=== PATIENT | female | born 1980 | race Caucasian/White ===

== ENCOUNTER → 2020-09-18 | Outpatient (CLI) | payer OTHER ==
--- NOTE | 2020-09-18 16:09 | RAD ---
EXAM: Pelvis and right hip, 3 views. HISTORY: Pain. Fall. COMPARISON: None. FINDINGS: Frontal views of the pelvis and frontal and frog-leg views the right hip are obtained. Ther e is no fracture, dislocation or subluxation. There are incidental bilateral fallopian tube closure d evices overlying the pelvis. IMPRESSION: No acute osseous finding. Electronically signed by: Hattie Cooney MD (09/18/2020 4:06 PM) [id number]
== END ==
LOC: RAD 15:53
PROVIDERS: ATTEND Nurse Practitioner Family
DX: M25.551 Pain in right hip (principal)
CPT/HCPCS: 73502

== ENCOUNTER 2021-07-08 05:19 | Inpatient (IN) | payer OTHER ==
[~2021-07-08] VITALS: Ht 165.1 cm; Wt 84.6 kg
[2021-07-08] MEDS ORDERED: methylPREDNISolone SOD SUCC PF 125 MG/2 ML VIAL. ONE (05:24)
[2021-07-08] MEDS ORDERED: IPRATRPIUM/ALBUTEROL 0.5/2.5MG 3 ML NEBU. ONE (05:24)
--- NOTE | 2021-07-08 05:24 | PHYS DOC ---
Past History Past Medical History: Asthma (KENDELL COHEN MD) General Adult EDM: Chief Complaint: ASTHMA HPI: HPI: "... I .. woke ... up.... this ... .way... I .... could .... nt ... breath......" Patient is a 41 year old female who presents with acute respiratory failure. Pt has history of longstanding asthma. Currently not on any steroids. No recent travel. No specific ill contacts. Paramedics advised that patient is found sats in the 80s and was started on a DuoNeb. Initially patient refused BiPAP. On arrival patient in tripod position sats in the 80s. Patient continued on duo nebs and started on BiPAP. Currently oxygenation has increased to 95% on BiPAP 12/11. Pt. has wheezes throughout pulmonary zulu[place]. Patient denies any recent travel. Patient did not get flu vaccination this season or Covid vaccinations.. (KENDELL COHEN MD) Review of Systems: Review of Systems: Constitutional: Denies fever or chills Eyes: Denies change in visual acuity HENT: History of nasal congestion Respiratory: Complains of cough and shortness of breath Cardiovascular: Denies chest pain or edema GI: Denies abdominal pain, nausea, vomiting, bloody stools or diarrhea : Denies dysuria Musculoskeletal: Denies back pain or joint pain Integument: Denies rash Neurologic: Denies headache, focal weakness or sensory changes Endocrine: Denies polyuria or polydipsia Lymphatic: Denies swollen glands Psychiatric: Denies depression or anxiety (KENDELL COHEN MD) Family History: Family History: Noncontributory to presentation (KENDELL COHEN MD) Current Medications: Current Meds: See nursing for home meds (KENDELL COHEN MD) Allergies: Allergies: No known drug allergies (KENDELL COHEN MD) Physical Exam: PE: Constitutional: In acute distress, non-toxic appearance. [] HENT: Normocephalic, atraumatic, bilateral external ears normal, oropharynx moist, no oral exudates, nose swollen turbinates clear rhinorrhea Eyes: PERRLA, EOMI, conjunctiva normal, no discharge. [] Neck: Normal range of motion, no tenderness, supple, no stridor. [] Cardiovascular: Tachycardia heart rate regular rhythm, no murmur [] Lungs & Thorax: Bilateral breath sounds diffuse wheezing in all lung zulu[place] on auscultation [] Abdomen: Bowel sounds decreased, soft, no tenderness, no masses, no pulsatile masses. [] Skin: Warm, diaphoretic, no erythema, no rash. [] Back: No tenderness, no CVA tenderness. [] Extremities: No tenderness, no cyanosis, no clubbing, ROM intact, no edema. No cording appreciated Neurologic: Alert and oriented X 3, normal motor function, normal sensory function, no focal deficits noted. [] Psychologic: Affect anxious, mood depressed. (KENDELL COHEN MD) Current Patient Data: Labs: Laboratory Tests Test 07/08/21 05:25 07/08/21 05:48 07/08/21 05:52 07/08/21 07:10 White Blood Count 6.7 x10^3/uL Red Blood Count 4.63 x10^6/uL Hemoglobin 14.3 g/dL Hematocrit 41.2 % Mean Corpuscular Volume 89 fL Mean Corpuscular Hemoglobin 31 pg Mean Corpuscular Hemoglobin Concent 35 g/dL Red Cell Distribution Width 13.2 % Platelet Count 291 x10^3/uL Neutrophils (%) (Auto) 56 % Lymphocytes (%) (Auto) 27 % Monocytes (%) (Auto) 12 % Eosinophils (%) (Auto) 3 % Basophils (%) (Auto) 1 % Neutrophils # (Auto) 3.8 x10^3uL Lymphocytes # (Auto) 1.8 x10^3/uL Monocytes # (Auto) 0.8 x10^3/uL Eosinophils # (Auto) 0.2 x10^3/uL Basophils # (Auto) 0.1 x10^3/uL Prothrombin Time 9.5 SEC Prothromb Time International Ratio 0.9 Activated Partial Thromboplast Time 26 SEC D-Dimer (Radha) 0.55 mg/L Maternal Serum HCG Beta Subunit < 1 mIU/mL Sodium Level 139 mmol/L Potassium Level 3.9 mmol/L Chloride Level 104 mmol/L Carbon Dioxide Level 22 mmol/L Anion Gap 13 Blood Urea Nitrogen 20 mg/dL Creatinine 0.7 mg/dL Estimated GFR (Cockcroft-Gault) 91.8 Glucose Level 162 mg/dL Calcium Level 9.1 mg/dL Magnesium Level 2.2 mg/dL Total Bilirubin 0.3 mg/dL Direct Bilirubin 0.1 mg/dL Aspartate Amino Transf (AST/SGOT) 17 U/L Alanine Aminotransferase (ALT/SGPT) 23 U/L Alkaline Phosphatase 54 U/L Creatine Kinase 78 U/L Troponin I High Sensitivity 7 ng/L AA-Rnw-M-Type Natriuretic Peptide 62 pg/mL Total Protein 7.4 g/dL Albumin 3.7 g/dL Lipase 71 U/L Lactic Acid Level 1.3 mmol/L Influenza Type A (Rapid) Negative Influenza Type B (Rapid) Negative SARS-CoV-2 Antigen (Rapid) Positive Bedside Venous pH 7.31 Bedside Venous pCO2 44 mmHg Bedside Venous pO2 29 mmHg Venous Blood HCO3 22 mmol/L POC Venous O2 Saturation (Iam) 50 % Bedside FiO2 36 Test 07/08/21 07:17 Urine Collection Type Unknown Urine Color Mara Urine Clarity Hazy Urine pH 5.0 Urine Specific [place] >=1.030 Urine Protein Neg Urine Glucose (UA) Neg mg/dL Urine Ketones (Stick) Trace mg/dL Urine Blood Trace Urine Nitrite Neg Urine Bilirubin Small Urine Urobilinogen Dipstick 0.2 mg/dL Urine Leukocyte Esterase Neg Urine RBC 1-2 /HPF Urine WBC 11-20 /HPF Urine Squamous Epithelial Cells Many /LPF Urine Renal Epithelial Cells Few /LPF Urine Bacteria Few /HPF Urine Mucus Slight /LPF Urine Opiates Screen Pos Urine Methadone Screen Neg Urine Barbiturates Neg Urine Phencyclidine Screen Neg Urine Amphetamine/Methamphetamine Neg Urine Benzodiazepines Screen Pos Urine Cocaine Screen Neg Urine Cannabinoids Screen Pos Urine Ethyl Alcohol Neg Current Medications Medications (Trade) Dose Ordered Sig/Flavia Route PRN Reason Start Time Stop Time Status Last Admin Dose Admin Albuterol/ Ipratropium (Duoneb) 3 ml STK-MED ONCE .ROUTE 07/08/21 05:24 07/08/21 05:24 DC Methylprednisolone Sodium Succinate (SOLU-Medrol 125MG VIAL) 125 mg STK-MED ONCE .ROUTE 07/08/21 05:24 07/08/21 05:24 DC Lactated Ringer's 1,000 ml @ 100 mls/hr Q10H IV 07/08/21 05:30 07/08/21 15:29 07/08/21 05:31 Methylprednisolone Sodium Succinate (SOLU-Medrol 125MG VIAL) 125 mg 1X ONCE IV 07/08/21 05:30 07/08/21 05:33 DC 07/08/21 05:32 Albuterol/ Ipratropium (Duoneb) 3 ml 1X ONCE NEB 07/08/21 05:30 07/08/21 05:33 DC 07/08/21 05:32 Magnesium Sulfate 50 ml @ 25 mls/hr 1X ONCE IV 07/08/21 05:30 07/08/21 07:30 DC 07/08/21 05:35 Azithromycin 500 mg/Sodium Chloride 250 ml @ 250 mls/hr 1X ONCE IV 07/08/21 05:30 07/08/21 06:29 DC 07/08/21 05:30 Morphine Sulfate (Morphine 10mg Syringe) 10 mg STK-MED ONCE .ROUTE 07/08/21 05:51 07/08/21 05:51 DC Morphine Sulfate (Morphine 10mg Syringe) 10 mg 1X ONCE SQ 07/08/21 06:00 07/08/21 06:01 DC 07/08/21 05:57 Ondansetron HCl (Zofran) 4 mg STK-MED ONCE .ROUTE 07/08/21 06:06 07/08/21 06:06 DC Ondansetron HCl (Zofran) 8 mg 1X ONCE IVP 07/08/21 06:15 07/08/21 06:16 DC 07/08/21 06:08 Iohexol (Omnipaque 350 Mg/ml) 100 ml 1X ONCE IV 07/08/21 06:30 07/08/21 06:37 DC Info (Do NOT chart on this entry -- for MONITORING) 1 each PRN DAILY PRN MC SEE COMMENTS 07/08/21 06:45 07/10/21 06:44 Sodium Chloride 250 ml @ As Directed STK-MED ONCE .ROUTE 07/08/21 07:52 07/08/21 07:52 DC Azithromycin (Zithromax) 500 mg STK-MED ONCE IV 07/08/21 07:52 07/08/21 07:52 DC Vital Signs: Vital Signs Date Time Temp Pulse Resp B/P (MAP) Pulse Ox O2 Delivery O2 Flow Rate FiO2 07/08/21 05:19 97.9 140 150/102 (118) 79 07/08/21 05:19 60 Room Air 07/08/21 08:01 2.0 Vital Signs Date Time Temp Pulse Resp B/P (MAP) Pulse Ox O2 Delivery O2 Flow Rate FiO2 07/08/21 08:01 110 20 164/93 (116) 97 2.0 07/08/21 05:30 BiPAP/CPAP 07/08/21 05:19 97.9 (BARAK TONEY DO) EKG: EKG: [] (KENDELL COHEN MD) EKG: EKG ordered and interpreted by myself at 0608 hrs. sinus tachycardia at 137 bpm, unremarkable intervals, no axis deviation, significant artifact due to increased respiratory effort but no obvious STEMI (BARAK TONEY DO) Radiology/Procedures: Radiology/Procedures: [] (KENDELL COHEN MD) Radiology/Procedures: EXAMINATION: CTA Chest With IV contrast INDICATION:41 years, Female, shortness of breath, hypoxia. COMPARISON: None. TECHNIQUE: Spiral CTA was obtained from the jugular notch through the posterior costophrenic recess. 3-D MIPS, sagittal and coronal reformats were obtained. Exposure: One or more of the following individualized dose reduction techniques were utilized for this examination: 1. Automated exposure control 2. Adjustment of the mA and/or kV according to patient size 3. Use of iterative reconstruction technique. FINDINGS: LUNGS/PLEURA: Central airways are patent. Subsegmental atelectasis and/or focal scarring in the medial right upper lobe and lingula. No focal consolidation, pleural effusion or pneumothorax. No suspicious pulmonary nodule.. MEDIASTINUM: No pathologic mediastinal or hilar adenopathy. The thoracic aorta and pulmonary arteries are normal in caliber. No evidence of pulmonary embolism. The heart is normal in size. No pericardial effusion. No detectable calcified coronary atherosclerosis. The visualized thyroid and the esophagus are unremarkable. AXILLA/SOFT TISSUE: No supraclavicular or axillary adenopathy. Regional soft tissues are within normal limits. UPPER ABDOMEN: The visualized upper abdomen appears unremarkable. BONES: No evidence of acute fractures or aggressive osseous lesions. IMPRESSION: No evidence of pulmonary embolism. Electronically signed by: Vick Obrien MD (07/08/2021 8:14 AM) [id number] (BARAK TONEY DO) Heart Score: Risk Factors: Risk Factors: DM, Current or recent (<one month) smoker, HTN, HLP, family history of CAD, obesity. Risk Scores: Score 0 - 3: 2.5% MACE over next 6 weeks - Discharge Home Score 4 - 6: 20.3% MACE over next 6 weeks - Admit for Clinical Observation Score 7 - 10: 72.7% MACE over next 6 weeks - Early Invasive Strategies (KENDELL COHEN MD) C/O Chest Pain: No HEART Score for Chest Pain: HEART Score for Chest Pain Response (Comments) Value History Slighlty/Non-Suspicious 0 ECG Nonspecific Repolarizatio 1 Age < 45 0 Risk Factors No Risk Factors 0 Troponin < Normal Limit 0 Total 1 (BARAK TONEY DO) Course & Med Decision Making: Course & Med Decision Making Pertinent Labs and Imaging studies reviewed. (See chart for details) Advised by Charge Nurse at Hospital they no longer take any pt. on Bipap with or without COVID. Also advised there will be no ICU bed s today at [facility]. Call [facility] no beds available. Call to [facility]- holding pt.s in ED Call to [facility] Pt. endorsed to Dr. Toney at shift change. He will make disposition. Impression: 1. Acute respiratory failure-hypoxia 2. Asthma exacerbation [] (KENDELL COHEN MD) Course & Med Decision Making I assumed care of patient after comprehensive signout from off going physician. I reviewed entirety of ER work-up and personally saw patient repeating certain aspects of history and physical exam I disclosed entirety of ER findings concerning for active COVID-19 infection in an unvaccinated individual with history of asthma without concern for pneumonia and/or pulmonary embolism Patient was able to be deescalated from BiPAP which significantly improved patient's respiratory status/work of breathing/tachypnea to oxygen via nasal cannula. Nonetheless, she continues to require this and is not fit for discharge home I contacted hospitalist who ultimately accepted patient under his care. Patient updated on decision for admission and she was amenable. All questions and concerns addressed prior to admission Of note, patient was seen and evaluated while in ER by admitting physician. Decision was made to pull off supplemental oxygen via nasal cannula. Shortly after, patient was found to be persistently hypoxic in the mid 80s which resolved with reapplication of 2 L oxygen via nasal cannula (BARAK TONEY DO) Dragon Disclaimer: Dragon Disclaimer: This electronic medical record was generated, in whole or in part, using a voice recognition dictation system. (KENDELL COHEN MD) Departure Departure: Impression: Primary Impression: COVID-19 Additional Impression: Acute respiratory disease due to COVID-19 virus Disposition: ADMITTED INPATIENT Admitting Physician: Corey Suh (BARAK TONEY DO) Condition: STABLE Referrals: PCP,AUDELIA (PCP) KENDELL COHEN MD Jul 08, 2021 05:24 BARAK TONEY DO Jul 08, 2021 07:27
[2021-07-08] MEDS ORDERED: AZITHROMYCIN 500 MG in IV NORMAL SALINE 250ML 250 ML IV ONE (05:30)
[2021-07-08] MEDS ORDERED: MAGNESIUM SULFATE 2GM 50 ML IV ONE (05:30)
[2021-07-08] MEDS ORDERED: IV RINGERS SOLUTION,LACTATED 1,000 ML IV SCH (05:30)
[2021-07-08] MEDS ORDERED: IPRATRPIUM/ALBUTEROL 0.5/2.5MG 3 ML NEBU. NEB ONE (05:30)
[2021-07-08] MEDS ORDERED: methylPREDNISolone SOD SUCC PF 125 MG/2 ML VIAL. IV ONE (05:30)
[2021-07-08 05:43] LABS: BASO # 0.1 x10^3/uL (0.0-0.2); BASO % 1 % (0-3); EOS # 0.2 x10^3/uL (0.0-0.7); EOS % 3 % (0-3); HEMATOCRIT 41.2 % (36.0-47.0); HEMOGLOBIN 14.3 g/dL (12.0-15.5); LYMPH # 1.8 x10^3/uL (1.0-4.8); LYMPH % 27 % (24-48); MEAN CORPUSCULAR HEMOGLOBIN 31 pg (25-35); MEAN CORPUSCULAR HGB CONC 35 g/dL (31-37); MEAN CORPUSCULAR VOLUME 89 fL (79-100); MONO # 0.8 x10^3/uL (0.0-1.1); MONO % 12 % (0-9); NEUT # 3.8 x10^3uL (1.8-7.7); NEUT % 56 % (31-73); PLATELET COUNT 291 x10^3/uL (140-400); RED BLOOD COUNT 4.63 x10^6/uL (3.50-5.40); RED CELL DISTRIBUTION WIDTH 13.2 % (11.5-14.5); WHITE BLOOD COUNT 6.7 x10^3/uL (4.0-11.0)
[2021-07-08] MEDS ORDERED: MORPHINE SULFATE 10 MG/ML SYRINGE. ONE (05:51)
[2021-07-08 05:52] LABS: CALCIUM 9.1 mg/dL (8.5-10.1); CREATININE 0.7 mg/dL (0.6-1.0); GFR 91.8; POTASSIUM 3.9 mmol/L (3.5-5.1)
--- NOTE | 2021-07-08 05:53 | RAD ---
XR CHEST 1V Clinical History: Reason: respiratory failure, short of air. Hx: Asthma / Spl. Instructions: / Histo ry: Technique: AP view of the chest was obtained at 07/08/2021 5:30 AM. Comparison: None. Findings: The cardiomediastinal silhouette is normal. The pulmonary vasculature is normal. The lungs and pleura l margins are clear. Impression: No evidence of an acute cardiopulmonary process. Electronically signed by: Dean Stark III, MD (07/08/2021 5:50 AM) [facility]
[2021-07-08] MEDS ORDERED: MORPHINE SULFATE 10 MG/ML SYRINGE. SQ ONE (06:00)
[2021-07-08 06:05] LABS: ALBUMIN 3.7 g/dL (3.4-5.0); DIRECT BILIRUBIN 0.1 mg/dL (0.0-0.2); MAGNESIUM 2.2 mg/dL (1.8-2.4); TOTAL BILIRUBIN 0.3 mg/dL (0.2-1.0); TOTAL PROTEIN 7.4 g/dL (6.4-8.2)
[2021-07-08] MEDS ORDERED: ONDANSETRON PF 4 MG/2 ML VIAL. ONE (06:06)
[2021-07-08] MEDS ORDERED: ONDANSETRON PF 4 MG/2 ML VIAL. IVP ONE (06:15)
[2021-07-08 06:19] LABS: INFLUENZA A PATIENT NEGATIVE (NEGATIVE); INFLUENZA B PATIENT NEGATIVE (NEGATIVE)
[2021-07-08] MEDS ORDERED: IOHEXOL 350 MG/ML 100 ML VIAL. IV ONE (06:30)
[2021-07-08] MEDS ORDERED: CONTRAST GIVEN. MC PRN (06:45)
--- NOTE | 2021-07-08 07:35 | EKG ---
[address] [address] Test Date: 2021-07-08 Test Time: 06:03:14 Pat Name: KLAUDIA ROMERO Department: Room: Gender: F Endoscope Technician: ANGELO : 1980 Requested By: KENDELL COHEN Order Number: [id number] Reading MD: Giacomo Rocha MD Measurements Intervals [employer] Rate: 137 P: HI: QRS: 6 QRSD: 88 T: 59 QT: 300 QTc: 455 Interpretive Statements SINUS TACHYCARDIA PVC PROLONGED QT Electronically Signed On 07-15-2021 8:24:50 BRAKE DRUM LATHE OPERATOR by Giacomo Rocha MD
[2021-07-08 07:37] LABS: AMPHETAMINE/METHAMPHETAMINE NEG (NEG); BARBITURATES NEG (NEG); BENZODIAZEPINES POS (NEG); CANNABINOIDS POS (NEG); COCAINE NEG (NEG); METHADONE NEG (NEG); OPIATES POS (NEG); PHENCYCLIDINE NEG (NEG)
[2021-07-08] MEDS ORDERED: IV NORMAL SALINE 250ML 250 ML ONE (07:52)
[2021-07-08] MEDS ORDERED: AZITHROMYCIN 500 MG VIAL. IV ONE (07:52)
[2021-07-08 07:53] LABS: BILIRUBIN,URINE SMALL (NEG); CLARITY,URINE HAZY; COLOR,URINE AMBER; GLUCOSE,URINE NEG (NEG)
[2021-07-08 07:54] LABS: BACTERIA,URINE FEW /HPF (0-FEW); NITRITE,URINE NEG (NEG); SQUAMOUS EPITHELIAL CELL,UR MANY /LPF; UROBILINOGEN,URINE 0.2 mg/dL (0.2 mg/dL)
--- NOTE | 2021-07-08 08:16 | RAD ---
EXAMINATION: CTA Chest With IV contrast INDICATION:41 years, Female, shortness of breath, hypoxia. COMPARISON: None. TECHNIQUE: Spiral CTA was obtained from the jugular notch through the posterior costophrenic recess. 3-D MIPS, sagittal and coronal reformats were obtained. Exposure: One or more of the following individualized dose reduction techniques were utilized for thi s examination: 1. Automated exposure control 2. Adjustment of the mA and/or kV according to patient size 3. Use of iterative reconstruction technique. FINDINGS: LUNGS/PLEURA: Central airways are patent. Subsegmental atelectasis and/or focal scarring in the media l right upper lobe and lingula. No focal consolidation, pleural effusion or pneumothorax. No suspicio us pulmonary nodule.. MEDIASTINUM: No pathologic mediastinal or hilar adenopathy. The thoracic aorta and pulmonary arteries are normal in caliber. No evidence of pulmonary embolism. The heart is normal in size. No pericardia l effusion. No detectable calcified coronary atherosclerosis. The visualized thyroid and the esophagu s are unremarkable. AXILLA/SOFT TISSUE: No supraclavicular or axillary adenopathy. Regional soft tissues are within uma l limits. UPPER ABDOMEN: The visualized upper abdomen appears unremarkable. BONES: No evidence of acute fractures or aggressive osseous lesions. IMPRESSION: No evidence of pulmonary embolism. Electronically signed by: Vick Obrien MD (07/08/2021 8:14 AM) [id number]
[2021-07-08] MEDS ORDERED: BISMUTH SUBSALICYLATE 262 MG TAB.CHEW PO ONE (08:28)
[2021-07-08] MEDS ORDERED: BISMUTH SUBSALICYLATE 262 MG/15 ML ORAL.SUSP 236ML BOTTLE. PO PRN (08:30)
[2021-07-08] MEDS ORDERED: AZITHROMYCIN 500 MG in IV NORMAL SALINE 250ML 250 ML IV SCH (09:00)
[2021-07-08] MEDS: BISMUTH SUBSALICYLATE 262 MG TAB.CHEW PO PRN ×3 (09:05→18:40)
--- NOTE | 2021-07-08 11:56 | HP ---
DATE OF SERVICE: 07/08/2021 ADMIT DATE: 07/08/2021 ATTENDING PHYSICIAN: Dr. Suh. SUBJECTIVE: Shortness of breath. HISTORY OF PRESENT ILLNESS: The patient, age 41, had an asthma attack this morning. She woke up from sleep, wheezing. EMS was called. She was very tight. Her oxygen saturations diminished. She was given DuoNeb, supplemental oxygen and BiPAP. Eventually, she was better. The wheezing resolved. Her chest x-ray in the ED was entirely clear without any acute infiltrate. She had an incidental finding of a positive COVID swab, most likely Omicron variant. She has not been vaccinated. She does smoke marijuana and cigarettes and therefore this contributes to the asthma. She used as inhaled. She was admitted then for further treatment and evaluation. PAST MEDICAL HISTORY: Significant for bipolar disorder. She also has anxiety disorder as well as a history of supraventricular tachycardia, treated with a catheter ablation at [facility]. CURRENT MEDICATIONS: As follows. She also has been taking Seroquel 300 mg and Xanax. ALLERGIES: SHE HAS ALLERGIES TO PENICILLIN AND AMOXICILLIN, EXACT REACTIONS UNCLEAR. SOCIAL HISTORY: She is a smoker. She does recreational marijuana. FAMILY HISTORY: Unobtainable due to the fact that the patient is adopted. REVIEW OF SYSTEMS: Significant for the fact that she has not been vaccinated. No fevers, cough, congestion. All other systems reviewed and turned to be negative. PHYSICAL EXAMINATION: GENERAL: When I saw her, this is a pleasant young female. By the time I saw her, she was doing well on room air. VITAL SIGNS: Initial vital signs showed a blood pressure of 160/90, pulse was 110. She was afebrile. HEENT: Head is without trauma. Pupils are reactive. Sclerae nonicteric. Oropharynx clear. NECK: Supple, no bruits. CARDIOVASCULAR: Showed regular heart tones. No gallops. LUNGS: Diffuse wheezing still noticeable. ABDOMEN: Soft. EXTREMITIES: Without edema. NEUROLOGIC: Focally intact. PERTINENT LABORATORY STUDIES: Chest x-ray was entirely clear. Serology positive for coronavirus. Hemoglobin was 14.3 grams, white count 6700. Chemistry panel unremarkable. ASSESSMENT: 1. This 41-year-old female has an exacerbation of asthma. 2. Substance abuse. 3. Incidental finding of COVID in an unvaccinated patient. It is not causing symptom. 4. History of supraventricular tachycardia. 5. History of bipolar disorder with anxiety. PLAN: 1. Admit to the inpatient unit. 2. Nebulizer therapy. 3. Corticosteroids. 4. Empiric antibiotics. 5. COVID precautions, but it is not causing the symptoms. PAUL DR: Aimee TID: [id number]
[2021-07-08] MEDS ORDERED: IPRATRPIUM/ALBUTEROL 0.5/2.5MG 3 ML NEBU. NEB SCH ×2 (12:00→16:00)
[2021-07-08 15:00] VITALS: BP 120/77
[2021-07-08] MEDS ORDERED: QUET300T5 PO (15:29)
[2021-07-08] MEDS ORDERED: ALPR1TAB2 PO (15:29)
[2021-07-08] MEDS: ONDANSETRON PF 4 MG/2 ML VIAL. IVP PRN (17:12)
[2021-07-08] MEDS: methylPREDNISolone SOD SUCC PF 125 MG/2 ML VIAL. IV SCH ×2 (17:12→21:04)
[2021-07-08 19:30] VITALS: BP 114/74
[2021-07-08] MEDS: IPRATROPIUM/ALBUTEROL 20/100mcg/INH INHALER. INH SCH (20:00)
[2021-07-08] MEDS: ALPRAZolam 0.5 MG TABLET PO SCH (20:26)
[2021-07-08] MEDS: BENZONATATE 100 MG CAPSULE. PO SCH (20:27)
[2021-07-08] MEDS: QUEtiapine 100 MG TABLET. PO SCH (20:27)
[2021-07-08] MEDS: FAMOTIDINE 20 MG TABLET PO SCH (20:27)
[2021-07-08] MEDS: guaiFENesin/CODEINE 100mg/10mg 5 ML LIQUID PO PRN (20:28)
[2021-07-08] MEDS ORDERED: CHOLECALCIFEROL (VITAMIN D3) 50,000 UNIT CAPSULE PO SCH (21:00)
[2021-07-09 00:05] VITALS: BP 114/68
[2021-07-09] MEDS: methylPREDNISolone SOD SUCC PF 125 MG/2 ML VIAL. IV SCH ×4 (05:09→22:14)
[2021-07-09] MEDS: BISMUTH SUBSALICYLATE 262 MG TAB.CHEW PO PRN (05:54)
[2021-07-09 06:06] VITALS: BP 98/66
[2021-07-09 06:09] LABS: BASO # 0.1 x10^3/uL (0.0-0.2); BASO % 0 % (0-3); EOS % 0 % (0-3); HEMATOCRIT 40.9 % (36.0-47.0); HEMOGLOBIN 13.9 g/dL (12.0-15.5); LYMPH % 5 % (24-48); MEAN CORPUSCULAR HEMOGLOBIN 30 pg (25-35); MEAN CORPUSCULAR HGB CONC 34 g/dL (31-37); MEAN CORPUSCULAR VOLUME 90 fL (79-100); MONO # 0.5 x10^3/uL (0.0-1.1); MONO % 3 % (0-9); NEUT # 19.3 x10^3uL (1.8-7.7); NEUT % 92 % (31-73); PLATELET COUNT 326 x10^3/uL (140-400); RED BLOOD COUNT 4.57 x10^6/uL (3.50-5.40); RED CELL DISTRIBUTION WIDTH 13.1 % (11.5-14.5); WHITE BLOOD COUNT 20.9 x10^3/uL (4.0-11.0)
[2021-07-09 06:17] LABS: CALCIUM 8.2 mg/dL (8.5-10.1); CREATININE 0.7 mg/dL (0.6-1.0); GFR 91.8; POTASSIUM 4.2 mmol/L (3.5-5.1)
[2021-07-09] MEDS: ONDANSETRON PF 4 MG/2 ML VIAL. IVP PRN (08:14)
[2021-07-09] MEDS: AZITHROMYCIN 500 MG in IV NORMAL SALINE 250ML 250 ML IV SCH (08:14)
[2021-07-09] MEDS: FAMOTIDINE 20 MG TABLET PO SCH ×2 (08:14→20:25)
[2021-07-09] MEDS: ASPIRIN 325 MG TABLET PO SCH (08:14)
[2021-07-09] MEDS: BENZONATATE 100 MG CAPSULE. PO SCH ×3 (08:15→20:24)
[2021-07-09] MEDS: IPRATROPIUM/ALBUTEROL 20/100mcg/INH INHALER. INH SCH ×4 (08:15→20:24)
[2021-07-09 08:38] LABS: % ATYL 3 % (0-0); % BANDS 26 % (0-9); % LYMPHS 2 % (24-48); % SEGS 69 % (35-66)
[2021-07-09 08:42] LABS: PLT ESTIMATE ADEQUATE (ADEQUATE)
[2021-07-09] MEDS: ACETAMINOPHEN 325 MG TABLET PO PRN ×2 (10:18→20:25)
[2021-07-09 11:12] VITALS: BP 114/72
[2021-07-09 15:20] VITALS: BP 110/70
[2021-07-09] MEDS: ALPRAZolam 0.5 MG TABLET PO SCH (20:24)
[2021-07-09] MEDS: guaiFENesin/CODEINE 100mg/10mg 5 ML LIQUID PO PRN (20:24)
[2021-07-09] MEDS: QUEtiapine 100 MG TABLET. PO SCH (20:24)
[2021-07-09 20:26] VITALS: BP 117/76
[2021-07-09] MEDS: CETIRIZINE HCL 10 MG TABLET PO SCH (20:26)
--- NOTE | 2021-07-09 21:41 | PN ---
DATE: 07/09/2021 SUBJECTIVE: The patient is resting, slightly propped up in bed, continued to complain of some shortness of breath and she has also complaining of palpitation. She apparently had an SVT for which she underwent ablation before. She is known to have also bronchial asthma. When I saw her this morning, she was in fact resting, doing very well and was clearly in no apparent respiratory distress. There was no pallor, jaundice, cyanosis. No lymphadenopathy, no thyromegaly, no jugular venous distention. No limb edema. PHYSICAL EXAMINATION: VITAL SIGNS: His heart rate was 104, blood pressure 114/72, temperature was 98.5, respiratory rate was 18 and oxygen saturation was 97% on 2.5 liters of oxygen. HEAD, EYES, EARS, NOSE, AND THROAT: Normocephalic, atraumatic. NECK: Supple. HEART: Showed normal first and second heart sounds. No gallop, rub or murmur. CHEST: Showed central trachea, equal bilateral chest expansion, air entry, vesicular breath sounds. I could not appreciate any crepitation or rhonchi. ABDOMEN: Distended, soft, nontender. NEUROLOGIC: She was grossly intact. Her intake over the last 24 hours was 914, output was ____ recorded. LABORATORY DATA: Showed a white cell count of 20.9, hemoglobin 13.9, hematocrit 41, MCV 90 and platelet count 326,000. Her chemistry showed a serum sodium 140, potassium 4.2, chloride 106, bicarbonate 21, anion gap of 13, BUN 14, creatinine 0.7. Estimated GFR is 92 mL per minute. Her glucose 132, calcium was 8.2. TSH was normal. Her prothrombin time, INR and APTT are normal. D-dimer was slightly elevated at 0.55. Her coronavirus by SARS-CoV-2 antigen rapid testing was positive; however, influenza A and B were negative. Her serum test was negative. Her chest x-ray showed no evidence of any acute cardiopulmonary process. CT angio of the chest showed that there is no evidence of pulmonary embolism and her central airways are patent, subsegmental atelectasis and/or focal scarring in the medial right upper lobe and lingula. No focal consolidation, pleural effusion or pneumothorax. No suspicious pulmonary nodules. No pathologic mediastinal or hilar adenopathy. The thoracic aorta and pulmonary arteries are normal in caliber. No evidence of pulmonary embolism. The heart is normal in size. No pericardial effusion. No detectable calcified coronary atherosclerosis. The visualized thyroid and esophagus are unremarkable. Her axilla and soft tissues showed no evidence of supraclavicular or axillary adenopathy. Regional soft tissues are within normal limits. Visualized upper abdomen appears unremarkable with no evidence of acute fracture or aggressive osseous lesions. The patient has not been vaccinated before. She was admitted with asymptomatic COVID infection as well as acute asthma exacerbation. She is maintaining her oxygen saturation at 99% on 2 liters of oxygen. PLAN: My plan is to obviously continue with IV antibiotic. Continue with steroids. We will evaluate her again tomorrow. If she is maintaining her oxygen on room air, we will discharge her to continue treatment as an outpatient. SURAJ DR: Ishmael TID: [id number]
[2021-07-09 23:31] VITALS: BP 115/66
[2021-07-10] MEDS: methylPREDNISolone SOD SUCC PF 125 MG/2 ML VIAL. IV SCH ×2 (05:34→13:31)
[2021-07-10 05:44] VITALS: BP 112/56
[2021-07-10 06:26] LABS: HEMATOCRIT 39.3 % (36.0-47.0); HEMOGLOBIN 13.3 g/dL (12.0-15.5); RED BLOOD COUNT 4.37 x10^6/uL (3.50-5.40); RED CELL DISTRIBUTION WIDTH 13.4 % (11.5-14.5); WHITE BLOOD COUNT 23.7 x10^3/uL (4.0-11.0)
[2021-07-10 06:42] LABS: ALBUMIN 3.1 g/dL (3.4-5.0); CALCIUM 8.1 mg/dL (8.5-10.1); CREATININE 0.7 mg/dL (0.6-1.0); GFR 91.8; POTASSIUM 4.1 mmol/L (3.5-5.1); TOTAL BILIRUBIN 0.2 mg/dL (0.2-1.0); TOTAL PROTEIN 6.2 g/dL (6.4-8.2)
[2021-07-10] MEDS: IPRATROPIUM/ALBUTEROL 20/100mcg/INH INHALER. INH SCH ×2 (08:06→12:07)
[2021-07-10] MEDS: ASPIRIN 325 MG TABLET PO SCH (08:07)
[2021-07-10] MEDS: AZITHROMYCIN 500 MG in IV NORMAL SALINE 250ML 250 ML IV SCH (08:07)
[2021-07-10] MEDS: ACETAMINOPHEN 325 MG TABLET PO PRN (08:07)
[2021-07-10] MEDS: BENZONATATE 100 MG CAPSULE. PO SCH ×2 (08:08→13:31)
[2021-07-10] MEDS: FAMOTIDINE 20 MG TABLET PO SCH (08:08)
[2021-07-10] MEDS: CETIRIZINE HCL 10 MG TABLET PO SCH (08:08)
[2021-07-10 11:51] VITALS: BP 119/68
[2021-07-10] MEDS ORDERED: ALBU2.5V5 NEB (14:29)
--- NOTE | 2021-07-10 17:19 | DS ---
DATE OF DISCHARGE: 07/10/2021 HOSPITAL COURSE: The patient is a 41-year-old female patient who was admitted with increasing shortness of breath, diagnosed with acute hypoxic respiratory failure, asthma exacerbation. She has also had asymptomatic COVID-19 infection. She did actually very well. She has been afebrile. She is on room air, maintaining her oxygen saturation at 98%. PHYSICAL EXAMINATION: GENERAL: When I examined her, she looked well and was clearly in no apparent respiratory distress. No pallor, jaundice, cyanosis, or thyromegaly. No jugular venous distention. No limb edema. VITAL SIGNS: His heart rate was 97, blood pressure was 119/68, temperature was 98.2, respiratory rate was 18 and oxygen saturation was 96%. HEAD, EYES, EARS, NOSE, AND THROAT: Normocephalic, atraumatic. NECK: Supple. HEART: Showed normal first and second heart sounds. No gallop, rub or murmur. CHEST: Clear to auscultation. No crepitation, no rhonchi. ABDOMEN: Distended, soft, nontender. No guarding or rigidity. No organomegaly. All hernial orifice intact. Bowel sounds normal. NEUROLOGIC: She is grossly intact. LABORATORY DATA: This morning showed a white cell count 23,700, hemoglobin 13, hematocrit 39, MCV 90 and platelet count 328,000. Her serum sodium was 142, potassium 4.1, chloride 108, bicarbonate 21, anion gap of 13, BUN 18, creatinine 0.7. Estimated GFR was 91 mL per minute. Her glucose was 126, calcium was 8.1. Total bilirubin, AST, ALT, alkaline phosphatase were normal. Total protein 6.2, albumin was 3.1. Her D-dimer was 0.55. PT/INR and aPTT are normal. Urinalysis essentially unremarkable and toxic screen was positive for opiates. Her SARS-CoV-2 antigen rapid testing was positive; however, influenza A and B were negative. DISCHARGE MEDICATIONS: She was discharged home to continue on albuterol sulfate by nebulizer 2.5 mg in 3 mL by nebulizer every 4 hours as needed, alprazolam for Xanax 1 mg at bedtime, quetiapine fumarate for Seroquel 300 mg at bedtime. She was discharged also on a tapering course of steroids in the form of prednisone 40 mg once a day for 3 days, 30 mg once a day for 3 days, 20 mg once a day for 3 days and 10 mg once a day for 3 days, Zithromax 250 mg once a day for 3 more days. I also gave her a prescription for a nebulizer machine to be used at home with the albuterol nebulizer solution. FINAL DISCHARGE DIAGNOSES: 1. Acute hypoxic respiratory failure, resolved. 2. Acute asthma exacerbation, resolved. 3. Asymptomatic COVID-[address]: Ishmael TID: [id number]
== END 2021-07-10 15:00 | disposition home or self-care (01) | DRG 202 ==
LOC: ER 05:19 → ER HOLD 08:31 → 1 SOUTH 11:26
PROVIDERS: ADMIT Hospitalist; ATTEND Hospitalist
PROC: 5A09357 Assistance with Respiratory Ventilation, Less than 24 Consecutive Hours, Continuous Positive Airway Pressure (ICD-10-PCS; principal; 2021-07-08)
DX: J45.901 Unspecified asthma with (acute) exacerbation (principal); U07.1 COVID-19; J96.01 Acute respiratory failure with hypoxia; F12.90 Cannabis use, unspecified, uncomplicated; F17.210 Nicotine dependence, cigarettes, uncomplicated; F31.9 Bipolar disorder, unspecified; F41.9 Anxiety disorder, unspecified; Z88.0 Allergy status to penicillin; Z88.8 Allergy status to other drugs, medicaments and biological substances; Z91.048 Other nonmedicinal substance allergy status
CPT/HCPCS: 36415; 71045; 71275; 80048; 80053; 80076; 80307; 81001; 82550; 82803; 83605; 83690; 83735; 83880; 84443; 84484; 84702; 85007; 85025; 85027; 85379; 85610; 85730; 87040; 87077; 87086; 87186; 87428; 93005; 94640; 94660; 96365; 96366; 96368; 96372; 96375; J0456; J2270; J2405; J2930; J3475; J7050; J7120; Q9967; 99285-25